=== PATIENT | female | born 1985 | race Caucasian/White ===

== ENCOUNTER 2017-08-07 13:31 | Emergency (ER) | payer OTHER ==
[~2017-08-07] VITALS: Ht 162.6 cm; Wt 65.7 kg
[2017-08-07 13:35] VITALS: BP 173/85; PULSE 88; RESP 18; TEMP 98.3; O2SAT 99
[2017-08-07] MEDS ORDERED: birth control PO (14:02)
[2017-08-07] MEDS ORDERED: ROBA500T PO (15:24)
[2017-08-07] MEDS ORDERED: IBUP1TAB7 PO (15:24)
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
== END 2017-08-07 15:45 | disposition home or self-care (01) ==
LOC: PHEFT 13:31
DX: S39.012A Strain of muscle, fascia and tendon of lower back, initial encounter (principal); V43.52XA Car driver injured in collision with other type car in traffic accident, initial encounter
CPT/HCPCS: 99283